=== PATIENT | male | born 1925 | race Caucasian/White ===

== ENCOUNTER → 2016-12-26 | Outpatient (CLI) | payer OTHER, MEDICARE ==
[~2016-12-26] MED LIST: ACETAMINOPHEN-1 EAC1 PO; ASCORBIC ACID500 M3 PO; ASPIR-LOW81 MG PO; ASPIRIN81 M2 PO; AVODART0.5 MG PO; CALCIUM 500 MG1 EACH PO; CYMBALTA20 MG PO; FAMOTIDINE20 MG PO; FEXOFENADINE H180 MG PO; FOLIC ACID1 MG PO; FUROSEMIDE20 MG PO; GLYCOLAX225 GM PO; KLOR-CON 1010 ME1 PO; L-ARGININE500 MG PO; LASIX20 MG PO; LEVETIRACETAM500 MG PO; LOPRESSOR50 MG PO; MELATIN3 MG PO; METOPROLOL TART25 MG PO; PRADAXA150 MG PO; PRAVASTATIN SOD80 MG PO; PROCERA; SENNA PLUS TAB1 EACH PO; SENNA-TIME S T1 EACH PO; THERAGRAN1 TABLET PO; VITAMIN D-3 401 EACH PO; ZOFRAN8 MG PO
== END | disposition home or self-care (01) ==
DX: R13.10 Dysphagia, unspecified (principal)
CPT/HCPCS: 92611 GN; G8996 GN; G8997 GN; G8998 GN